=== PATIENT | male | born 1985 | race African-American/Black ===

== ENCOUNTER 2021-12-09 11:58 | Emergency (ER) | payer OTHER ==
[2021-12-09] MEDS ORDERED: IBUPROFEN 400 MG TABLET (FP) PO ONE ×2 (12:02→12:16)
[2021-12-09 12:29] VITALS: BP 127/87; PULSE 86; TEMP 98.3; BMI 34.9
== END 2021-12-09 12:29 | disposition home or self-care (01) ==
LOC: FER 11:58
DX: S39.012A Strain of muscle, fascia and tendon of lower back, initial encounter (principal); V49.40XA Driver injured in collision with unspecified motor vehicles in traffic accident, initial encounter
CPT/HCPCS: 99283-25

== ENCOUNTER 2024-09-03 17:55 | Emergency (ER) | payer OTHER ==
[2024-09-03 18:00] VITALS: BP 157/89; PULSE 86; RESP 18; TEMP 97.9; BMI 34.2
[2024-09-03] MEDS ORDERED: IBUPROFEN 600 MG TABLET (FP) PO ONE (18:24)
[2024-09-03] MEDS: IBUPROFEN 400 MG TABLET (FP) PO ONE (18:27)
== END 2024-09-03 19:00 | disposition home or self-care (01) ==
LOC: FER 17:55
DX: S13.4XXA Sprain of ligaments of cervical spine, initial encounter (principal); V53.6XXA Passenger in pick-up truck or van injured in collision with car, pick-up truck or van in traffic accident, initial encounter; Y92.410 Unspecified street and highway as the place of occurrence of the external cause
CPT/HCPCS: 99283-25